=== PATIENT | female | born 1985 | race Asian ===

== ENCOUNTER 2017-02-17 10:50 | Inpatient (IN) | payer SELFPAY ==
[~2017-02-17] VITALS: Ht 160 cm; Wt 56.2 kg
[2017-02-17] MEDS ORDERED: LACTATED RINGERS 1,000 ML IV SCH (11:02)
[2017-02-17] MEDS ORDERED: AMPICILLIN 2,000 MG in NACL 0.9% 100 ML IV ONE (11:05)
[2017-02-17] MEDS ORDERED: NALBUPHINE 10 MG/ML AMP IVP PRN (11:05)
[2017-02-17] MEDS ORDERED: PROMETHAZINE 25 MG/ML VIAL IVP PRN (11:05)
[2017-02-17] MEDS ORDERED: METHYLERGONOVINE 0.2 MG/ML AMP IM SCH (11:15)
[2017-02-17] MEDS ORDERED: OXYTOCIN 20 UNITS/LR PREMIX 1,000 ML IV SCH (11:20)
[2017-02-17 12:07] LABS: BASOPHILS # (AUTO) 0.1 K/uL (0.00-0.22); EOSINOPHILS # (AUTO) 0.1 K/uL (0-0.4); EOSINOPHILS % (AUTO) 1.4 % (0.0-4.0); HEMATOCRIT 36.1 % (36-48); HEMOGLOBIN 11.9 g/dL (12.0-16.0); LYMPHOCYTES # (AUTO) 1.4 K/uL (2.5-16.5); LYMPHOCYTES % (AUTO) 13.2 % (20.5-51.1); MEAN CORPUSCULAR HEMOGLOBIN 28 pg (27-31); MEAN CORPUSCULAR HGB CONC 33 g/dL (33-37); MEAN CORPUSCULAR VOLUME 86 fL (80-94); MONOCYTES # (AUTO) 0.7 K/uL (0.8-1.0); MONOCYTES % (AUTO) 6.6 % (1.7-9.3); NEUTROPHILS % (AUTO) 77.8 % (42.2-75.2); PLATELET COUNT (AUTO) 110 K/uL (140-450); RED BLOOD CELL COUNT(AUTO) 4.22 MIL/uL (4.20-5.40); RED CELL DISTRIBUTION WIDTH 12.9 % (11.6-13.7); WHITE BLOOD COUNT (AUTO) 10.3 K/uL (4.8-10.8)
[2017-02-17 12:12] LABS: BILIRUBIN,URINE NEGATIVE (NEGATIVE); BLOOD, URINE 1+ (NEGATIVE); COLOR,URINE YELLOW (YELLOW); LEUKOCYTE ESTERASE ,URINE NEGATIVE (NEGATIVE); NITRITE, URINE NEGATIVE (NEGATIVE); PROTEIN,URINE NEGATIVE (NEGATIVE); UGLUCOSE NEGATIVE (NEGATIVE); UROBILINOGEN,URINE 0.2 EU/dL (0.2 - 1)
[2017-02-17 12:30] LABS: HIV RAPID SCREEN NON-REACTIVE (NON REACTIV)
[2017-02-17 12:33] LABS: APPEARANCE,URINE SLIGHTLY HAZY (CLEAR)
[2017-02-17 12:34] LABS: BACTERIA,URINE 2+ /HPF (None Seen); RBC,URINE 0-5 (RARE) /HPF (0-5); SQUAMOUS EPITHELIAL CELL,UR 4-10 (MOD) /LPF (0-3 (FEW)); WBC,URINE 0-5 (RARE) /HPF (0-5)
[2017-02-17 12:35] LABS: MUCUS,URINE 1+ /LPF (None Seen)
[2017-02-17] MEDS ORDERED: MISOPROSTOL 25 MCG TAB PO PRN (13:45)
[2017-02-17] MEDS ORDERED: MISOPROSTOL 25 MCG TAB ONE (13:54)
[2017-02-17] MEDS ORDERED: AMPICILLIN 1,000 MG VIAL IVP SCH (16:00)
[2017-02-17] MEDS ORDERED: NALBUPHINE HYDROCHLORIDE 10 MG/ML VIAL ONE (16:05)
[2017-02-17] MEDS ORDERED: PROMETHAZINE 25 MG/ML VIAL ONE (16:06)
[2017-02-17] MEDS ORDERED: ROPIVACAINE 0.2%/NS PREMIX 250 ML EPI ONE (16:45)
[2017-02-17] MEDS ORDERED: OXYTOCIN 20 UNITS/LR PREMIX 1,000 ML IV ONE (18:07)
[2017-02-17] MEDS ORDERED: OXYTOCIN 10 UNITS/ML VIAL ONE (19:03)
[2017-02-17] MEDS ORDERED: BENZOCAINE/MENTHOL 20%-0.5% 60 GM CAN TP PRN (19:45)
[2017-02-17] MEDS ORDERED: HYDROcodone/APAP 5/325 MG 1 TAB TAB PO PRN (19:45)
[2017-02-17] MEDS ORDERED: TEMAZEPAM 15 MG CAP PO PRN (19:45)
[2017-02-17] MEDS ORDERED: METHYLERGONOVINE 0.2 MG/ML AMP IM PRN (19:45)
[2017-02-17] MEDS ORDERED: WITCH HAZEL 40 PAD PACKAGE TP PRN (19:45)
[2017-02-17] MEDS ORDERED: MEASLES, MUMPS, AND RUBELLA 1 VIAL SQVAC PRN (19:45)
[2017-02-17] MEDS ORDERED: OXYTOCIN 10 UNITS/ML VIAL IM PRN (19:45)
[2017-02-17] MEDS ORDERED: OXYTOCIN 10 UNITS/ML VIAL IM ONE (20:55)
[2017-02-17] MEDS ORDERED: DOCUSATE SOD/SENNA 50/8.6 MG 1 TAB PO SCH (21:00)
[2017-02-18] MEDS: IBUPROFEN 800 MG TAB PO PRN ×2 (01:48→16:46)
[2017-02-18 05:50] LABS: HEMATOCRIT 30.6 % (36-48); HEMOGLOBIN 9.9 g/dL (12.0-16.0)
[2017-02-18 14:19] LABS: RAPID PLASMA REAGIN NON-REACTIVE (Non Reactiv)
[2017-02-19] MEDS: oxyCODONE/APAP 5/325 MG 1 TAB TAB PO PRN ×2 (03:52→11:02)
[2017-02-19] MEDS ORDERED: NACL 0.9% 500 ML IV SCH ×2 (10:30)
== END 2017-02-19 16:15 | disposition home or self-care (01) | DRG 775 ==
LOC: MLD 10:50 → MFCC 23:25
PROVIDERS: ADMIT Obstetrics & Gynecology; ATTEND Obstetrics & Gynecology
PROC: 10D07Z6 Extraction of Products of Conception, Vacuum, Via Natural or Artificial Opening (ICD-10-PCS; principal; 2017-02-17)
PROC: 3E0P7GC Introduction of Other Therapeutic Substance into Female Reproductive, Via Natural or Artificial Opening (ICD-10-PCS; 2017-02-17)
PROC: 00HU33Z Insertion of Infusion Device into Spinal Canal, Percutaneous Approach (ICD-10-PCS; 2017-02-17)
PROC: 3E0R3CZ (ICD-10-PCS; 2017-02-17)
PROC: 3E0234Z Introduction of Serum, Toxoid and Vaccine into Muscle, Percutaneous Approach (ICD-10-PCS; 2017-02-18)
DX: O80 Encounter for full-term uncomplicated delivery (principal); Z37.0 Single live birth; Z3A.38 38 weeks gestation of pregnancy; Z23 Encounter for immunization
CPT/HCPCS: 36415; 51702; 59409; 81001; 85018; 85025; 86592; 86886; 86900; 86901; 87086; 90707; C1758; J2300; J2550; J2590; J2795; J7030; J7120